=== PATIENT | male | born 1960 | race Caucasian/White ===

== ENCOUNTER 2022-05-12 10:46 | Inpatient (IN) | payer OTHER ==
[~2022-05-12] VITALS: Ht 175.3 cm; Wt 124.7 kg
[2022-05-12 11:56] LABS: HEMOGLOBIN 15.8 gm/dl (14.0-17.5); RED BLOOD COUNT 5.62 M/UL (4.20-5.50); WHITE BLOOD COUNT 17.1 K/UL (4.5-11.0)
[2022-05-12 12:17] LABS: BUN/CREATININE RATIO 15 (0-10)
[2022-05-12] MEDS ORDERED: ALEVE220 MG PO (16:21)
[2022-05-13 06:19] LABS: HEMOGLOBIN 14.6 gm/dl (14.0-17.5)
[2022-05-13 06:28] LABS: RED BLOOD COUNT 5.04 M/UL (4.20-5.50); WHITE BLOOD COUNT 25.3 K/UL (4.5-11.0)
[2022-05-13 06:49] LABS: BUN/CREATININE RATIO 16 (0-10)
[2022-05-14 06:02] LABS: HEMOGLOBIN 13.1 gm/dl (14.0-17.5); RED BLOOD COUNT 4.53 M/UL (4.20-5.50); WHITE BLOOD COUNT 21.5 K/UL (4.5-11.0)
[2022-05-14 06:17] LABS: BUN/CREATININE RATIO 19 (0-10)
[2022-05-15 06:25] LABS: HEMOGLOBIN 14.4 gm/dl (14.0-17.5)
[2022-05-15 06:32] LABS: WHITE BLOOD COUNT 13.7 K/UL (4.5-11.0)
[2022-05-15 06:50] LABS: BUN/CREATININE RATIO 20 (0-10)
== END 2022-05-15 11:24 | disposition home or self-care (01) | DRG 439 ==
LOC: ER1 10:46 → CDU 16:18 → MED SURG 4 16:18
PROVIDERS: Physician Assistant; Physician Assistant Medical; ADMIT Internal Medicine Infectious Disease
DX: K85.90 Acute pancreatitis without necrosis or infection, unspecified (principal); Z68.41 Body mass index [BMI] 40.0-44.9, adult; E66.9 Obesity, unspecified; K59.00 Constipation, unspecified; Z87.19 Personal history of other diseases of the digestive system; Z90.49 Acquired absence of other specified parts of digestive tract; Z82.3 Family history of stroke; Z80.52 Family history of malignant neoplasm of bladder; Z82.0 Family history of epilepsy and other diseases of the nervous system
CPT/HCPCS: 36415; 80048; 80053; 80061; 81001; 82550; 82553; 83690; 83735; 84484; 85025; 85027; 86140; 93005; 96374; 96375; 96376; 99285; G0378; J2270; J2405; J2550; Q9967